=== PATIENT | female | born 2005 | race Caucasian/White ===

== ENCOUNTER 2024-02-14 09:33 | Outpatient (REF) | payer OTHER, SELFPAY ==
--- NOTE | ~2024-02-14 | US_ITS ---
EXAMINATION: US PELVIS CLINICAL INFORMATION: Nonvisualized IUD. COMPARISON: None available. TECHNIQUE: Ultrasound of the pelvis is performed using both transabdominal and transvaginal transducers along with Doppler. Transvaginal imaging is performed due to inadequate visualization transabdominally. FINDINGS: Uterus: The uterus is anteverted and measures 6.2 x 3.0 x 3.2 cm. The double wall endometrial thickness is 2 mm. An IUD can be seen in good position within the endometrial canal. The uterus is smooth in contour and has normal myometrial echogenicity. No visible fibroid. Adnexa: Both ovaries are visualized. There is normal color flow to the adnexa. There is no ovarian torsion. There is no pelvic ascites or fluid collection. Right ovary measures 3.2 x 3.0 x 2.2 cm for a volume of 11.0 mL. Left ovary measures 1.5 x 2.2 x 2.1 cm for a volume of 3.4 mL. US/US pelvic and transvaginal IMPRESSION: IUD is in good position within the endometrial canal.
== END 2024-02-14 09:34 | disposition home or self-care (01) ==
LOC: HO.UMASIMG 09:33
PROVIDERS: Visit Provider Nurse Practitioner Women's Health
DX: Z30.431 Encounter for routine checking of intrauterine contraceptive device (principal); T83.32XA Displacement of intrauterine contraceptive device, initial encounter
CPT/HCPCS: 76830; 76856